=== PATIENT | male | born 1995 | race Two or more races ===

== ENCOUNTER 2017-12-20 05:42 | Emergency (ER) | payer MEDICAID, OTHER ==
[~2017-12-20] VITALS: Ht 185.4 cm; Wt 72.6 kg
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
--- NOTE | 2017-12-20 06:08 | NUR ---
DR. COULTER AT BEDSIDE FOR EVAL.
[2017-12-20] MEDS ORDERED: TDAP [DIPH/PERTUSSIS/TET] 0.5 ML VIAL IM ONE ×2 (06:30→06:36)
[2017-12-20] MEDS ORDERED: IV NS 0.9% 1,000 ML BAG IV ONE (06:30)
[2017-12-20] MEDS ORDERED: CEFAZOLIN 1 GM in IV NS 0.9% 50 ML IV ONE (06:30)
[2017-12-20] MEDS ORDERED: ONDANSETRON HCL/PF 4 MG/2 ML VIAL IVP ONE (06:30)
[2017-12-20] MEDS ORDERED: MORPHINE SULFATE INJ 2 MG/ML DISP.SYRIN IV ONE (06:30)
[2017-12-20] MEDS ORDERED: CEFAZOLIN 1 GM ONE (06:36)
[2017-12-20] MEDS ORDERED: MORPHINE SULFATE INJ 4 MG/ML DISP.SYRIN ONE (06:36)
[2017-12-20] MEDS ORDERED: ONDANSETRON HCL/PF 4 MG/2 ML VIAL ONE (06:36)
[2017-12-20 07:01] LABS: CALCIUM, SERUM 9.2 mg/dL (8.5-10.1); CREATININE 0.9 mg/dL (0.6-1.3)
[2017-12-20 07:06] LABS: BASOPHILS % (AUTO) 0.2 % (0.0-2.0); EOSINOPHILS # (AUTO) 0.1 /CMM (0.0-0.7); EOSINOPHILS % (AUTO) 1.5 % (0.0-6.0); HEMATOCRIT 42 % (39-51); HEMOGLOBIN 14.5 g/dL (13.5-17.5); LYMPHOCYTES # (AUTO) 1.2 /CMM (0.8-4.8); LYMPHOCYTES % (AUTO) 15.6 % (20.0-44.0); MEAN CORPUSCULAR HEMOGLOBIN 30 PG (26.0-33.0); MEAN CORPUSCULAR HGB CONC 35 g/dl (31.0-36.0); MEAN CORPUSCULAR VOLUME 86 fL (80-96); MONOCYTES # (AUTO) 0.3 /CMM (0.1-1.30); MONOCYTES % (AUTO) 4.5 % (2.0-12.0); NEUTROPHILS # (AUTO) 6.1 /CMM (1.8-8.9); NEUTROPHILS % (AUTO) 78.2 % (43.0-81.0); PLATELET COUNT (AUTO) 218 /CMM (150-450); RDW COEFFICIENT OF VARIATION 14.3 (11.5-15.0); RED BLOOD CELL COUNT(AUTO) 4.88 MIL/uL (4.5-6.0); WHITE BLOOD COUNT (AUTO) 7.8 K/uL (4.3-11.0)
--- NOTE | 2017-12-20 07:06 | NUR ---
REPORT GIVEN TO VENKATA LÓPEZ FOR [facility].
--- NOTE | 2017-12-20 07:09 | NUR ---
MOTHER AT BEDSIDE. DR. COULTER SPEAKING TO PT AND MOTHER REGARDING POC
--- NOTE | 2017-12-20 07:10 | NUR ---
PT TO CT.
[2017-12-20] MEDS ORDERED: CT SWABBABLE VALVE TRANS SET 1 EA INFUS.SET MC ONE (07:12)
[2017-12-20] MEDS ORDERED: IOHEXOL-300 100 ML VIAL IV ONE (07:12)
[2017-12-20] MEDS ORDERED: IV NS 0.9% 500 ML IV ONE (07:12)
[2017-12-20 07:17] LABS: INR 0.91 (0.87-1.13)
[2017-12-20] MEDS ORDERED: LIDOCAINE 0.5% HCL 50 ML VIAL ONE (10:00)
--- NOTE | 2017-12-20 10:06 | NUR ---
DR. RUIZ AT BEDSIDE
[2017-12-20 10:55] VITALS: BP 140/82
--- NOTE | 2017-12-20 10:56 | NUR ---
Patient discharged to home in stable condition. Written and verbal after care instructions given. Patient verbalizes understanding of instruction. INTRUCTED PT TO LEAVE THE SUTURED LC OPEN TO AIR PER MD JOSEPH, TRIPLE ATB APPLIED ORDERED
== END 2017-12-20 10:57 | disposition home or self-care (01) ==
LOC: ER 05:44
DX: S11.91XA Laceration without foreign body of unspecified part of neck, initial encounter (principal); V46.9XXA Unspecified car occupant injured in collision with other nonmotor vehicle in traffic accident, initial encounter; Y93.89 Activity, other specified; Y92.410 Unspecified street and highway as the place of occurrence of the external cause; Y99.8 Other external cause status
CPT/HCPCS: 13132; 13133; 36415; 70450; 70491; 71045; 80048; 85025; 85730; 90471; 90715; 96365; 96375; 99285; A4216 ×2; A4606 ×2; A6403 ×2; J0690 ×2; J2270; J2405; J3490; J7030; J7040; Q9967; Z7610 ×2